=== PATIENT | female | born 1945 | race Caucasian/White ===

== ENCOUNTER 2017-08-02 16:08 | Emergency (ER) | payer MEDICARE ==
[~2017-08-02] VITALS: Wt 75.0 kg
[~2017-08-02 16:08] MED LIST: BUPR75TA9 PO; CALC-600 PO; GABA-526 PO; IBUP800T25 PO; LISI10TA2 PO
[2017-08-02] MEDS ORDERED: HYDROCODONE/APAP (5/325) TAB PO ONE (17:00)
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
[2017-08-02 17:48] LABS: URINE BLOOD (Dip) POC Negative (NEGATIVE)
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
[2017-08-02] MEDS ORDERED: TRAM50TA2 PO (19:07)
[2017-08-02] MEDS ORDERED: METH500T PO (19:07)
[2017-08-02 19:36] VITALS: BP 118/70; PULSE 77; RESP 18; TEMP 98.3
== END 2017-08-02 19:40 | disposition home or self-care (01) ==
LOC: FTE 16:08
DX: M45.2 Ankylosing spondylitis of cervical region (principal); M51.34 Other intervertebral disc degeneration, thoracic region; I10 Essential (primary) hypertension
CPT/HCPCS: 70450; 72072; 72125; 81003